=== PATIENT | female | born 1955 | race Hispanic/Latino ===

== ENCOUNTER → 2021-10-29 | Outpatient (CLI) | payer OTHER, MEDICARE ==
[~2021-10-29] VITALS: Ht 157.5 cm; Wt 63.0 kg
[~2021-10-29] MED LIST: REGADENOSON 0.4 MG/5 ML PF SYG IVP SCH
== END | disposition home or self-care (01) ==
LOC: SHCH 08:07
PROVIDERS: ATTEND Internal Medicine Cardiovascular Disease
DX: R06.02 Shortness of breath (principal)
CPT/HCPCS: 78452; 93017; 96374; A9500 ×2; J2785